=== PATIENT | female | born 1965 | race African-American/Black ===

== ENCOUNTER 2018-10-09 23:08 | Emergency (ER) | payer MEDICAID ==
[~2018-10-09] VITALS: Ht 157.5 cm; Wt 41.0 kg
[2018-10-10 00:47] LABS: CLARITY URINE CLEAR (CLEAR); COLOR URINE YELLOW (YELLOW); KETONES URINE NEGATIVE (NEGATIVE); LEUKOCYTE ESTERASE URINE 1+ (NEGATIVE); NITRITE URINE NEGATIVE (NEGATIVE); OCCULT BLOOD URINE TRACE (NEGATIVE); PH URINE 6.5 (4.5-8.0); PROTEIN URINE NEGATIVE (NEGATIVE); SPECIFIC GRAVITY URINE 1.007 (1.005-1.030)
[2018-10-10 02:01] LABS: BASOPHILS % 0.3 % (0.0-2.0); EOSINOPHILS % 0.1 % (0.0-5.0); HEMATOCRIT. 29.6 % (36.0-48.0); HEMOGLOBIN. 9.8 g/dL (12.0-16.0); LYMPHOCYTES % 12.3 % (20.0-50.0); MEAN CORPUSCULAR HEMOGLOBIN 26.4 pg (28.0-32.0); MEAN CORPUSCULAR VOLUME 80.1 fL (81.0-99.0); MEAN PLATELET VOLUME 8.4 fl (7.4-10.4); MONOCYTES % 9.7 % (2.0-8.0); NEUTROPHILS % 77.6 % (40.0-76.0); PLATELET 387 x1000/uL (130-400); RED BLOOD CELL COUNT 3.69 mill/uL (4.2-5.4)
[2018-10-10 02:08] LABS: CHLORIDE 103 mEq/L (98-107)
[2018-10-10] MEDS ORDERED: SODIUM CHLORIDE 0.9% 1,000 ML IV ONE (02:45)
[2018-10-10] MEDS ORDERED: IOHEXOL-300 100 ML BOTTLE ONE (04:29)
[2018-10-10 08:00] VITALS: BP 97/59
== END 2018-10-10 08:02 | disposition home or self-care (01) ==
LOC: ER 23:08
DX: M54.9 Dorsalgia, unspecified (principal); R91.1 Solitary pulmonary nodule; R16.0 Hepatomegaly, not elsewhere classified; J98.11 Atelectasis; N28.1 Cyst of kidney, acquired; Z98.51 Tubal ligation status
CPT/HCPCS: 36415; 74176; 74177; 80053; 81003; 81025; 85025; 87086; 99284; 99406; J7030; Q9967